=== PATIENT | female | born 1975 | race Caucasian/White ===

== ENCOUNTER → 2019-02-09 | Outpatient (CLI) | payer BC ==
--- NOTE | 2019-02-10 08:44 | REP ---
MAXILLOFACIAL CT WITHOUT CONTRAST: HISTORY: Recurrent maxillary sinusitis. The sinuses are clear. The ostiomeatal units are patent. The middle and inferior nasal turbinates are partially paradoxical. There is mild deviation of the nasal septum to the right. A spur is present arising from the right side of the nasal septum. The cribriform plate, medial mendoza of the orbits, and optic canals are intact. The carotid canals form a segment of the posterolateral mendoza of the sphenoid sinus. The left sphenoid sinus septum inserts into the left internal carotid canal wall. IMPRESSION: There is no acute or chronic sinusitis. Electronically Signed by John Luu MD 02/10/2019 08:44 A
== END ==
LOC: M RAD 19:05
PROVIDERS: ATTEND Specialist
DX: J01.01 Acute recurrent maxillary sinusitis (principal)